=== PATIENT | male | born 1985 | race Caucasian/White ===

== ENCOUNTER 2017-07-11 15:05 | Emergency (ER) | payer MEDICAID ==
[~2017-07-11] VITALS: Ht 180.3 cm; Wt 86.6 kg
[2017-07-11 15:12] VITALS: BP 118/71
--- NOTE | 2017-07-11 15:16 | NUR ---
vs stable. no fever.dr. small made aware. patient taken to lobby via w/c
--- NOTE | 2017-07-11 16:45 | NUR ---
patient still in the lobby. no distress.watching tv
--- NOTE | 2017-07-11 17:12 | NUR ---
patient taken to of#4
--- NOTE | 2017-07-11 17:27 | NUR ---
patient moved to bed #10
--- NOTE | 2017-07-11 17:28 | NUR ---
PATIENT PRESENTS TO ED WITH c/o n/v/diarrhea/head pain as per patient.DENIES ANY MEDICAL HX; SKIN IS PINK/WARM/DRY; AAOX4 WITH EVEN AND STEADY GAIT; LUNGS CLEAR BL; HR EVEN AND REGULAR; PT DENIES ANY FEVER, CP, SOB, OR COUGH AT THIS TIME; PATIENT STATES PAIN OF 5/10 AT THIS TIME;PATIENT POSITIONED FOR COMFORT; HOB ELEVATED; BEDRAILS UP X2; BED DOWN. ALL MONITORS IN PLACED;ER MD MADE AWARE OF PT STATUS.
[2017-07-11] MEDS ORDERED: KETOROLAC 15 MG/ML VIAL IVP ONE (18:10)
[2017-07-11] MEDS ORDERED: NACL 0.9% 2,000 ML IV SCH (18:10)
[2017-07-11] MEDS ORDERED: ACETAMINOPHEN EXTRA STRENGTH 500 MG TAB PO ONE (18:10)
--- NOTE | 2017-07-11 18:43 | NUR ---
ASKED PT IF HE CAN GIVE URINE SPECIMEN;PT STATES "I CAN NOT GO AT THIS TIME"
[2017-07-11 18:46] LABS: HEMATOCRIT 53.5 % (36-52); HEMOGLOBIN 17.4 g/dL (12.0-18.0); MEAN CORPUSCULAR HEMOGLOBIN 29 pg (27-31); MEAN CORPUSCULAR HGB CONC 33 g/dL (33-37); MEAN CORPUSCULAR VOLUME 89 fL (80-94); PLATELET COUNT (AUTO) 317 K/uL (140-450); RED BLOOD CELL COUNT(AUTO) 6.01 MIL/uL (4.20-6.10); RED CELL DISTRIBUTION WIDTH 13.1 % (11.6-13.7); WHITE BLOOD COUNT (AUTO) 19.7 K/uL (4.8-10.8)
--- NOTE | 2017-07-11 18:46 | NUR ---
mattg reviewed by er. small
[2017-07-11 18:50] LABS: CARBON DIOXIDE 26.8 mmol/L (21-32); CREATININE 1.2 mg/dL (0.7-1.3); POTASSIUM 3.8 mmol/L (3.5-5.1)
[2017-07-11 18:57] LABS: ALBUMIN 4.3 g/dL (3.4-5.0); TOTAL BILIRUBIN 0.8 mg/dL (0.0-1.0)
--- NOTE | 2017-07-11 19:06 | NUR ---
INFLUENZA A AND B SPECIMEN COLLECTED;
[2017-07-11 19:08] LABS: LYMPHOCYTES % (MANUAL) 11 % (20-46); MONOCYTES % (MANUAL) 6 % (5-12)
--- NOTE | 2017-07-11 19:14 | NUR ---
Pt report given to WENDY GALLEGOS. Transfer of care at this time.
[2017-07-11 19:34] VITALS: BP 126/80
--- NOTE | 2017-07-11 19:34 | NUR ---
Patient discharged with v/s stable. Written and verbal after care instructions given and explained. Patient alert, oriented and verbalized understanding of instructions. Ambulatory with steady gait. All questions addressed prior to discharge. ID band removed. Patient advised to follow up with PMD. Rx of ZOFRAN AND IMODIUM given. Patient educated on indication of medication including possible reaction and side effects. Opportunity to ask questions provided and answered.
== END 2017-07-11 19:34 | disposition home or self-care (01) ==
LOC: MED 15:05
DX: A08.4 Viral intestinal infection, unspecified (principal)
CPT/HCPCS: 71010; 80053; 82550; 82553; 84484; 85025; 87040; 87804; 96361; 96374; 99285; J1885; Q0092